=== PATIENT | female | born 1950 | race Caucasian/White ===

== ENCOUNTER 2019-11-01 13:18 | Inpatient (IN) | payer MEDICARE, OTHER ==
[~2019-11-01] VITALS: Ht 154.9 cm; Wt 59.0 kg
[2019-11-01 16:00] VITALS: BP 135/67
[2019-11-01] MEDS ORDERED: PANT20TA2 PO (17:30)
[2019-11-01] MEDS ORDERED: NORT25CA5 PO (17:30)
[2019-11-01] MEDS ORDERED: DOCU-141 PO (17:30)
[2019-11-01] MEDS ORDERED: ALPR0.255 PO (17:30)
[2019-11-01] MEDS ORDERED: ACET-73 PO (17:30)
[2019-11-01] MEDS ORDERED: MIRT15TA PO (17:30)
[2019-11-01] MEDS ORDERED: PITA1TAB PO (17:30)
[2019-11-01] MEDS ORDERED: DIPH25CA83 PO (17:30)
[2019-11-01] MEDS ORDERED: APIX2.5T PO (17:30)
[2019-11-01] MEDS ORDERED: ACET1TAB25 PO (17:30)
[2019-11-01] MEDS ORDERED: MAGN400O6 PO (17:30)
[2019-11-01] MEDS ORDERED: BISA10SU61 RC (17:30)
[2019-11-01] MEDS ORDERED: METH-406 PO (17:30)
[2019-11-01] MEDS ORDERED: GABA100C PO (17:30)
--- NOTE | 2019-11-01 19:40 | NUR ---
Admission: Admitted a 69 year old female patient from [facility] at 1630pm. Pt. is AAO x 4, able to express needs. NO acute distress noted. S/P right knee revision arthroplasty. Right knee with original dressing in place, intact and dry. Pictures taken. Patient noted being very anxious up on admission. Explained all procedures and plan of care to patient. She is calm and resting in bed at this time. Vital signs checked and wnl for patient. NO c/o pain at this time. Also spoke with family (daughter in law) regarding care. Dr. Chen and Dr. Piper made aware of patient admission. Medications to be reconciled by MD. All other needs attended, endorsed to next shift and will continue with care.
[2019-11-01 20:00] VITALS: BP 136/71
[2019-11-01] MEDS ORDERED: BISACODYL 10 MG SUPP.RECT RC PRN (21:15)
[2019-11-01] MEDS ORDERED: Medication Not On Formulary EA (Pitavastatin Calcium (Livalo) 1 MG) PO SCH (21:15)
[2019-11-01] MEDS ORDERED: MAGNESIUM HYDROXIDE 30 ML LIQUID UDC PO PRN (21:15)
--- NOTE | 2019-11-01 21:48 | NUR ---
Received pt resting in bed. AAO x4. No acute distress noted. Denies pain/ discomfort. Pt noted to be anxious. Encouraged pt to verbalize regarding her concerns. Pt anxious about her knee and has history of anxiety. Gustavo ZHOU reconciled meds. Awaiting for pharmacy to verify meds, called and informed pharmacy to verify meds as pt is feeling anxious and wants to take her night meds. Safety measures maintained. Call light and personal items within reach. Will continue to monitor.
[2019-11-01] MEDS ORDERED: Medication Not On Formulary EA (Apixaban (Eliquis) 2.5 MG) PO SCH (22:00)
[2019-11-01] MEDS ORDERED: diphenhydrAMINE 25 MG CAP PO PRN (22:15)
[2019-11-01] MEDS: NORTRIPTYLINE HCL 25 MG CAPSULE PO SCH (22:17)
[2019-11-01] MEDS: MIRTAZAPINE 15 MG TABLET PO SCH (22:17)
[2019-11-01] MEDS: GABAPENTIN 100 MG CAPSULE PO SCH (22:17)
[2019-11-01] MEDS ORDERED: ELIQUIS 2.5 MG PO ONE (23:00)
--- NOTE | 2019-11-01 23:00 | NUR ---
Pt feeling anxious about her meds. She stated she has not taken her meds and eliquis for tonight. Followed up with pharmacy to verify meds. Able to give meds to pt. Continue to monitor.
[2019-11-02] MEDS: ALPRAZOLAM 0.25 MG TABLET PO PRN ×2 (00:17→22:26)
[2019-11-02 04:00] VITALS: BP 125/50
[2019-11-02 07:58] VITALS: BP 111/64
[2019-11-02] MEDS: PANTOPRAZOLE SODIUM 40 MG TABLET.DR PO SCH (08:07)
[2019-11-02] MEDS: DOCUSATE SODIUM 100 MG CAPSULE PO SCH ×2 (08:11→17:16)
[2019-11-02] MEDS: METHOCARBAMOL 500 MG TABLET PO SCH ×3 (08:11→17:20)
[2019-11-02] MEDS: ACETAMINOPHEN ES 500 MG TABLET PO SCH ×3 (08:11→17:20)
[2019-11-02] MEDS: APIXABAN 5 MG TABLET PO SCH ×2 (08:17→17:20)
[2019-11-02] MEDS ORDERED: Medication Not On Formulary EA (Apixaban (Eliquis) 2.5 MG) PO SCH (09:00)
--- NOTE | 2019-11-02 16:00 | NUR ---
INTERDISCIPLINARY TEAM CONFERENCE
[2019-11-02 16:07] VITALS: BP 115/55
--- NOTE | 2019-11-02 16:23 | NUR ---
patient is alert, oriented x4, no sob, resp even nonlabored,skin warm and dry to touch, patient seem very anxious about every thing, demanding and needy, patient complained about her right leg, patient stated it looks more swollen her, assessed the leg with +2 pitting edema, no redness noted, dressing is clean and dry, no drainage noted, patient called herself her surgeon, waiting for call back for further instructions Addendum: 11/02/19 at 1634 by MANUEL DAMON RN, RN capillary refill to right toes below 3 seconds, strong pedal pulses, legs color is pink and warm to touch, however called received from [facility] to do venous duplex, approved with dr rowe Addendum: 11/02/19 at 1636 by MANUEL DAMON RN, RN left lower leg noted with pitting edema +2 as well
[2019-11-02 20:00] VITALS: BP 134/62
[2019-11-02] MEDS: SIMVASTATIN 10 MG TABLET PO SCH (20:57)
[2019-11-02] MEDS: NORTRIPTYLINE HCL 25 MG CAPSULE PO SCH (20:58)
[2019-11-02] MEDS: MIRTAZAPINE 15 MG TABLET PO SCH (20:58)
[2019-11-02] MEDS: GABAPENTIN 100 MG CAPSULE PO SCH (20:58)
[2019-11-02] MEDS ORDERED: NORTRIPTYLINE HCL 25 MG CAPSULE PO SCH (21:00)
[2019-11-02] MEDS ORDERED: GABAPENTIN 100 MG CAPSULE PO SCH (21:00)
[2019-11-02] MEDS ORDERED: MIRTAZAPINE 15 MG TABLET PO SCH (21:00)
--- NOTE | 2019-11-02 21:29 | NUR ---
Received pt resting in bed. Assisted pt in ambulating in the hallway using walker, tolerated well. AAO x4. No acute distress noted. Denies pain/ discomfort. Due meds given as ordered. Safety measures maintained. Call light and personal items within reach. Will continue to monitor.
[2019-11-03 04:00] VITALS: BP 124/68
[2019-11-03] MEDS: PANTOPRAZOLE SODIUM 40 MG TABLET.DR PO SCH (06:08)
[2019-11-03] MEDS: METHOCARBAMOL 500 MG TABLET PO SCH ×3 (08:22→17:03)
[2019-11-03] MEDS: DOCUSATE SODIUM 100 MG CAPSULE PO SCH ×2 (08:22→17:00)
[2019-11-03] MEDS: ACETAMINOPHEN ES 500 MG TABLET PO SCH ×3 (08:22→17:03)
[2019-11-03] MEDS: APIXABAN 5 MG TABLET PO SCH ×2 (08:24→17:08)
--- NOTE | 2019-11-03 10:00 | NUR ---
Patient AAO x 4, able to express need. NO acute distress noted. Vital signs stable. Scheduled pain pill of Tylenol 500 ES administered also on Robaxin 500mg PO 1 tab TID administered as well. Patient on PT/OT therapy. Right knee dressing intact and dry. Patient noted being very anxious while giving care, explained procedures to patient and calmed patient down. NO complains of pain at this time. Patient ambulatory with a walker. All other needs attended, safety measures in place, call light left at bed side and will continue with care.
--- NOTE | 2019-11-03 14:00 | NUR ---
Patient was very anxious, and stated she wanted to go home now. Family daughter in law called and asked if patient can be discharged today at this moment because she wants to go home. Informed .
--- NOTE | 2019-11-03 14:40 | NUR ---
Patient stated she wants to go home on Tuesday and will not leave today.
[2019-11-03 16:29] VITALS: BP 133/58
--- NOTE | 2019-11-03 18:36 | NUR ---
Patient in bed and on the CPM machine, right knee surgical site with original dressing in place and intact and dry. Due medications administered. Patient did PT/OT. Stated everything is ok now and will be thinking about leaving on Tuesday. Needs attended and met. safety measures in place. Call light left within easy reach and will continue with care.
--- NOTE | 2019-11-03 19:10 | NUR ---
Patient in bed awake and on CPM machine. Patient denies any acute distress or pain. Patient's R. knee surgical dressing is intact, dry and no s/s of infection noted. Patient's vitals stable. Safety measures in place. Bed low and locked in position. Will continue with the plan of care.
[2019-11-03] MEDS: GABAPENTIN 100 MG CAPSULE PO SCH (20:38)
[2019-11-03] MEDS: SIMVASTATIN 10 MG TABLET PO SCH (20:38)
[2019-11-03] MEDS: NORTRIPTYLINE HCL 25 MG CAPSULE PO SCH (20:38)
[2019-11-03] MEDS: MIRTAZAPINE 15 MG TABLET PO SCH (20:38)
[2019-11-03 20:43] VITALS: BP 105/60
[2019-11-03] MEDS: ALPRAZOLAM 0.25 MG TABLET PO PRN (21:17)
[2019-11-04] MEDS: ACETAMINOPHEN/CODEINE 300-60 MG TABLET PO PRN ×2 (02:49→20:40)
[2019-11-04 05:48] VITALS: BP 110/68
[2019-11-04] MEDS: PANTOPRAZOLE SODIUM 40 MG TABLET.DR PO SCH (06:07)
[2019-11-04 06:16] LABS: BASOPHILS % (AUTO) 0.4 % (0.0-2.0); EOSINOPHILS # (AUTO) 0.2 K/uL (0.0-0.7); EOSINOPHILS % (AUTO) 2.8 % (0.0-7.0); HEMOGLOBIN 8.6 g/dL (10.9-14.3); LYMPHOCYTES # (AUTO) 1.7 K/uL (20.0-40.0); LYMPHOCYTES % (AUTO) 26.3 % (20.5-51.5); MEAN CORPUSCULAR HEMOGLOBIN 30.5 uug (24.7-32.8); MEAN CORPUSCULAR HGB CONC 35 g/dL (32.3-35.6); MEAN CORPUSCULAR VOLUME 88.1 fL (75.5-95.3); MONOCYTES # (AUTO) 0.6 K/uL (2.0-10.0); MONOCYTES % (AUTO) 8.9 % (0.0-11.0); NEUTROPHILS # (AUTO) 3.9 K/uL (1.8-8.9); NEUTROPHILS % (AUTO) 61.6 % (38.5-71.5); PLATELET COUNT (AUTO) 192 K/uL (179-408); RED BLOOD CELL COUNT(AUTO) 2.83 MIL/uL (3.63-4.92); WHITE BLOOD COUNT (AUTO) 6.3 K/uL (3.8-11.8)
[2019-11-04 06:23] LABS: CREATININE 0.8 mg/dL (0.6-1.3); POTASSIUM 3.9 mmol/L (3.5-5.1)
--- NOTE | 2019-11-04 06:43 | NUR ---
Patient slept throughout the night. Patient is awake and denies any acute distress or pain at this time. Patient was compliant with all prescribed medications. Patients vitals stable. R. leg surgical dressing remained intact, dry and no signs of infection. Comfort care and needs attended. Fall precautions maintained. Safety measures in place. Will endorse to the oncoming nurse accordingly.
--- NOTE | 2019-11-04 07:45 | NUR ---
Pt is A/o x4. Pt is compliant with medications. Surgical dressing on right knee is intact, no signs of infection. VS are stable. Pt denies distress. Pt is willing to participate in physical therapy.
[2019-11-04 08:00] VITALS: BP 109/48
[2019-11-04] MEDS ORDERED: PANTOPRAZOLE SODIUM 40 MG TABLET.DR PO SCH (08:45)
[2019-11-04] MEDS: ACETAMINOPHEN ES 500 MG TABLET PO SCH ×3 (08:57→17:18)
[2019-11-04] MEDS: DOCUSATE SODIUM 100 MG CAPSULE PO SCH ×2 (08:57→17:00)
[2019-11-04] MEDS: METHOCARBAMOL 500 MG TABLET PO SCH ×3 (08:57→17:18)
[2019-11-04] MEDS: APIXABAN 5 MG TABLET PO SCH ×2 (09:00→17:35)
--- NOTE | 2019-11-04 14:49 | NUR ---
INDIVIDUALIZED PLAN OF CARE
[2019-11-04 16:20] VITALS: BP 125/64
[2019-11-04 20:00] VITALS: BP 127/53
[2019-11-04] MEDS: NORTRIPTYLINE HCL 25 MG CAPSULE PO SCH (20:32)
[2019-11-04] MEDS: MIRTAZAPINE 15 MG TABLET PO SCH (20:32)
[2019-11-04] MEDS: GABAPENTIN 100 MG CAPSULE PO SCH (20:32)
[2019-11-04] MEDS: SIMVASTATIN 10 MG TABLET PO SCH (20:32)
[2019-11-04] MEDS: ALPRAZOLAM 0.25 MG TABLET PO PRN (21:35)
--- NOTE | 2019-11-04 21:48 | NUR ---
Received pt resting in bed. AAO x4. No acute distress noted. Expressed pain/discomfort in her right knee. Stated that she had very good PT today but is feeling a lot more pain with all the exercise. Patient is calm and cooperative. Administered all PM due medications. Patient requested pain medication, administered Tylenol, effective but patient states its still aching 3/. Encouraged pt to verbalize her concerns. Safety measures maintained. Call light and personal items within reach. patient is comfortable at the moment. Will continue to monitor through the night.
--- NOTE | 2019-11-04 21:58 | NUR ---
patient requested sleeping medication, administered Xanax as per request. continue to monitor.
[2019-11-05 04:00] VITALS: BP 129/57
--- NOTE | 2019-11-05 05:45 | NUR ---
Patient slept throughout the night. Patient is awake and denies any acute distress or pain at this time. Patient was compliant with all prescribed medications. Patients vitals stable. R. leg surgical dressing remained intact, dry and no signs of infection. SCD pump on throughout the night. Comfort care and needs attended. Fall precautions maintained. Safety measures in place. Will endorse to the oncoming nurse accordingly.
[2019-11-05] MEDS ORDERED: PANTOPRAZOLE SODIUM 40 MG TABLET.DR PO SCH (07:00)
[2019-11-05 08:00] VITALS: BP 130/69
[2019-11-05] MEDS: METHOCARBAMOL 500 MG TABLET PO SCH ×3 (08:11→16:50)
[2019-11-05] MEDS: DOCUSATE SODIUM 100 MG CAPSULE PO SCH ×2 (08:11→16:50)
[2019-11-05] MEDS: ACETAMINOPHEN ES 500 MG TABLET PO SCH ×3 (08:11→16:50)
[2019-11-05] MEDS: APIXABAN 5 MG TABLET PO SCH ×2 (08:12→16:55)
--- NOTE | 2019-11-05 15:39 | NUR ---
Received patient awake in bed in stable condition. Alert and oriented x4. Patient ongoing therapy for increase strenght and increase endurance. Patient continue pain management routinely with good effect. Ongoing CMP while in bed. Standby assist from bed to the bathroom. Walks with walker. tolerated well. will continue monitor
[2019-11-05 16:39] VITALS: BP 118/46
[2019-11-05] MEDS ORDERED: HYDROMORPHONE HCL 2 MG TABLET PO PRN (19:15)
[2019-11-05 20:00] VITALS: BP 100/55
[2019-11-05] MEDS: GABAPENTIN 100 MG CAPSULE PO SCH (21:29)
[2019-11-05] MEDS: NORTRIPTYLINE HCL 25 MG CAPSULE PO SCH (21:29)
[2019-11-05] MEDS: SIMVASTATIN 10 MG TABLET PO SCH (21:30)
[2019-11-05] MEDS: MIRTAZAPINE 15 MG TABLET PO SCH (21:30)
[2019-11-05] MEDS: ALPRAZOLAM 0.25 MG TABLET PO PRN (21:34)
[2019-11-06 04:00] VITALS: BP 106/61
--- NOTE | 2019-11-06 05:01 | NUR ---
Received pt waking in the hallway with her walker. AAO x4. No acute distress noted. Expressed pain/discomfort in her right knee. Stated that she already received pain medication and does not want to take anything at the moment. Patient is calm and cooperative. Administered all PM due medications. patient felt nauseas and dizzy, laying in bed, vitals stable. Gave patient snacks to eat because she did not eat dinner. Encouraged pt to verbalize her concerns., kept comfortable. Patient requested Xanax, administer effective. patient slept through the night. No new changes noted, vitals stable. Safety measures maintained. Call light and personal items within reach.. Will continue plan of care, endorse next shift accordingly.
[2019-11-06 06:22] LABS: BASOPHILS % (AUTO) 0.5 % (0.0-2.0); EOSINOPHILS # (AUTO) 0.2 K/uL (0.0-0.7); EOSINOPHILS % (AUTO) 2.6 % (0.0-7.0); HEMATOCRIT 25.7 % (31.2-41.9); HEMOGLOBIN 8.8 g/dL (10.9-14.3); LYMPHOCYTES # (AUTO) 1.6 K/uL (20.0-40.0); LYMPHOCYTES % (AUTO) 24.2 % (20.5-51.5); MEAN CORPUSCULAR HEMOGLOBIN 30.4 uug (24.7-32.8); MEAN CORPUSCULAR HGB CONC 34 g/dL (32.3-35.6); MEAN CORPUSCULAR VOLUME 88.5 fL (75.5-95.3); MONOCYTES # (AUTO) 0.6 K/uL (2.0-10.0); MONOCYTES % (AUTO) 9.8 % (0.0-11.0); NEUTROPHILS # (AUTO) 4.1 K/uL (1.8-8.9); NEUTROPHILS % (AUTO) 62.9 % (38.5-71.5); PLATELET COUNT (AUTO) 226 K/uL (179-408); RED BLOOD CELL COUNT(AUTO) 2.91 MIL/uL (3.63-4.92); WHITE BLOOD COUNT (AUTO) 6.6 K/uL (3.8-11.8)
[2019-11-06 06:32] LABS: CREATININE 0.9 mg/dL (0.6-1.3); POTASSIUM 3.9 mmol/L (3.5-5.1)
[2019-11-06 07:30] VITALS: BP 140/63
[2019-11-06] MEDS: ACETAMINOPHEN ES 500 MG TABLET PO SCH ×4 (08:48→17:22)
[2019-11-06] MEDS: METHOCARBAMOL 500 MG TABLET PO SCH ×4 (08:48→17:22)
[2019-11-06] MEDS: DOCUSATE SODIUM 100 MG CAPSULE PO SCH ×2 (08:48→17:22)
[2019-11-06] MEDS: APIXABAN 5 MG TABLET PO SCH ×2 (08:53→17:26)
--- NOTE | 2019-11-06 11:38 | NUR ---
Received patient awake in bed in stable condition. Alert and orientedx4. Patient continue pain management routinely for therapy. Patient tolerated well therapy for increase strenght, endurance and S/P surgery. Patient continue CPM machine while in bed. Patient verbalize, its helpful for her and she feels better now. Patient continue ambulating with walker. Patient surgery site intact and patent. no drainage and no foul smell noted. Patient refuse to change original dressing. will continue monitor
[2019-11-06 15:59] VITALS: BP 110/50
[2019-11-06] MEDS ORDERED: MAG HYDROX/AL HYDROX/SIMETH 30 ML LIQUID UDC PO PRN (18:15)
[2019-11-06 20:00] VITALS: BP 119/50
[2019-11-06] MEDS: SIMVASTATIN 10 MG TABLET PO SCH (20:54)
[2019-11-06] MEDS: GABAPENTIN 100 MG CAPSULE PO SCH (20:54)
[2019-11-06] MEDS: NORTRIPTYLINE HCL 25 MG CAPSULE PO SCH (20:54)
[2019-11-06] MEDS: MIRTAZAPINE 15 MG TABLET PO SCH (20:54)
[2019-11-06] MEDS: ALPRAZOLAM 0.25 MG TABLET PO PRN (20:57)
[2019-11-07 04:00] VITALS: BP 126/60
--- NOTE | 2019-11-07 05:31 | NUR ---
Received patient talking on her phone with daughter, delroy padgett, cooperative calm, very nice lady. Patient verbalized how pleased she is with physical therapy and the CMP machine, she is feeling better. No signs of distress noted, complaints of aching in her knee, stated she already took her medication for pain. Administered all due medications, as well as Xanax as per patient request to help her relax and fall asleep. Patient surgery site intact and patent, Picture taken and placed in chart, no new changes. Safety measure in place, call light and all personal items within reach. Patient continue ambulating with walker. All needs attended to promptly. Continue plan of care, endorse next shift accordingly.
[2019-11-07] MEDS: METHOCARBAMOL 500 MG TABLET PO SCH ×3 (08:51→16:33)
[2019-11-07] MEDS: ACETAMINOPHEN ES 500 MG TABLET PO SCH ×3 (08:51→16:33)
[2019-11-07] MEDS: APIXABAN 5 MG TABLET PO SCH ×2 (08:52→16:34)
[2019-11-07] MEDS: DOCUSATE SODIUM 100 MG CAPSULE PO SCH ×2 (08:52→16:33)
[2019-11-07 16:15] VITALS: BP 120/53
[2019-11-07 17:56] VITALS: BP 120/53
--- NOTE | 2019-11-07 19:30 | NUR ---
Received patient awake, alert and oriented x 4, denies any pain/discomforts at this time. No s/s of respiratory distress. Safety measures and fall precaution maintained. Continue care as planned.
[2019-11-07 20:00] VITALS: BP 143/73
[2019-11-07] MEDS: MIRTAZAPINE 15 MG TABLET PO SCH (20:29)
[2019-11-07] MEDS: NORTRIPTYLINE HCL 25 MG CAPSULE PO SCH (20:29)
[2019-11-07] MEDS: SIMVASTATIN 10 MG TABLET PO SCH (20:30)
[2019-11-07] MEDS: GABAPENTIN 100 MG CAPSULE PO SCH (20:31)
[2019-11-07] MEDS: ALPRAZOLAM 0.25 MG TABLET PO PRN (21:20)
[2019-11-08 04:00] VITALS: BP 100/60
--- NOTE | 2019-11-08 05:28 | NUR ---
Shift End Report: VS stable. No complaint of pain presented all night. Xanax given once for anxiety with help. Ambulatory to the bathroom with walker with slow unsteady gait. No fall /injury reported. All needs attended and met. No significant event reported. Continue current rehab plan of care.
[2019-11-08] MEDS: METHOCARBAMOL 500 MG TABLET PO SCH ×3 (08:12→17:06)
[2019-11-08] MEDS: DOCUSATE SODIUM 100 MG CAPSULE PO SCH ×3 (08:12→17:06)
[2019-11-08] MEDS: ACETAMINOPHEN ES 500 MG TABLET PO SCH ×3 (08:12→17:07)
[2019-11-08] MEDS: APIXABAN 5 MG TABLET PO SCH ×2 (08:16→17:09)
[2019-11-08 08:35] VITALS: BP 114/72
--- NOTE | 2019-11-08 09:43 | NUR ---
Patient alert, oriented x 4, not in any form of distress, on room air. Patient compliant with medications. No complain of any pain at this time. With clean and dry surgical dressing on the right knee. Assisted with her needs promptly. Call light and frequently used items placed within patient's reach. Safety measures maintained.
[2019-11-08 15:00] VITALS: BP 109/50
--- NOTE | 2019-11-08 18:58 | NUR ---
Patient participated with therapy and tolerated well. No complain of any pain or discomfort at this time. Due medications administered and tolerated well. CPM used and patient tolerated. Assisted with her needs promptly. Safety measures maintained. Will endorse accordingly to assistant casino shift manager nurse.
--- NOTE | 2019-11-08 19:30 | NUR ---
Awake, in bed, watching TV during initial rounds. Cold compress applied on right knee for complaint of pain. Right knee dressing dry and intact with slight swelling noted. Refused pain meds offered. Safety measures and fall precaution maintained. Continue care as planned.
[2019-11-08 20:07] VITALS: BP 132/80
[2019-11-08 20:11] VITALS: BP 132/80
[2019-11-08] MEDS: SIMVASTATIN 10 MG TABLET PO SCH (21:00)
[2019-11-08] MEDS: HYDROMORPHONE HCL 2 MG TABLET PO PRN (21:00)
[2019-11-08] MEDS: MIRTAZAPINE 15 MG TABLET PO SCH (21:01)
[2019-11-08] MEDS: NORTRIPTYLINE HCL 25 MG CAPSULE PO SCH (21:01)
[2019-11-08] MEDS: GABAPENTIN 100 MG CAPSULE PO SCH (21:01)
[2019-11-09 05:20] VITALS: BP 96/50
--- NOTE | 2019-11-09 06:35 | NUR ---
Shift End Report; Slept well. No further complaint presented. Pain medication effective. No significant event reported all night. Continue current rehab plan of care. VS stable.
[2019-11-09 06:37] LABS: BASOPHILS % (AUTO) 0.3 % (0.0-2.0); EOSINOPHILS # (AUTO) 0.1 K/uL (0.0-0.7); EOSINOPHILS % (AUTO) 1.7 % (0.0-7.0); HEMATOCRIT 26.8 % (31.2-41.9); HEMOGLOBIN 9.2 g/dL (10.9-14.3); LYMPHOCYTES % (AUTO) 22.4 % (20.5-51.5); MEAN CORPUSCULAR HEMOGLOBIN 30.5 uug (24.7-32.8); MEAN CORPUSCULAR HGB CONC 34 g/dL (32.3-35.6); MEAN CORPUSCULAR VOLUME 88.7 fL (75.5-95.3); MONOCYTES # (AUTO) 0.7 K/uL (2.0-10.0); MONOCYTES % (AUTO) 8.4 % (0.0-11.0); NEUTROPHILS # (AUTO) 5.9 K/uL (1.8-8.9); NEUTROPHILS % (AUTO) 67.2 % (38.5-71.5); PLATELET COUNT (AUTO) 283 K/uL (179-408); RED BLOOD CELL COUNT(AUTO) 3.02 MIL/uL (3.63-4.92); WHITE BLOOD COUNT (AUTO) 8.8 K/uL (3.8-11.8)
[2019-11-09 07:02] LABS: BILIRUBIN,TOTAL 0.9 mg/dL (0.2-1.0); CREATININE 0.9 mg/dL (0.6-1.3); MAGNESIUM 2.3 mg/dL (1.8-2.4); PHOSPHOROUS 4.3 mg/dL (2.5-4.9); POTASSIUM 4.1 mmol/L (3.5-5.1); TOTAL PROTEIN, SERUM 6.6 g/dL (6.4-8.2)
[2019-11-09 07:44] VITALS: BP 111/48
[2019-11-09] MEDS: METHOCARBAMOL 500 MG TABLET PO SCH ×3 (08:06→17:28)
[2019-11-09] MEDS: ACETAMINOPHEN ES 500 MG TABLET PO SCH ×3 (08:06→17:00)
[2019-11-09] MEDS: DOCUSATE SODIUM 100 MG CAPSULE PO SCH ×2 (08:09→17:00)
[2019-11-09 08:34] LABS: THYROID STIMULATING HORMONE 1.458 mIU/mL (0.358-3.740)
[2019-11-09] MEDS: APIXABAN 5 MG TABLET PO SCH ×2 (08:40→17:28)
[2019-11-09] MEDS: HYDROMORPHONE HCL 2 MG TABLET PO PRN ×2 (13:22→17:36)
[2019-11-09 15:07] VITALS: BP 107/54
--- NOTE | 2019-11-09 17:54 | NUR ---
Patient remains alert, oriented x 4, ambulatory with walker, not in any form of distress, on room air. She complained of right knee pain, given PRN pain medication as ordered with noted relief. Patient participated with PT and OT. Patient used CPM applied by PT for 2 hours. Due medications administered and tolerated well. Assisted with her needs promptly. Call light and frequently used items placed within patient's reach.
--- NOTE | 2019-11-09 19:20 | NUR ---
Patient received in bed, AAOx4. Patient denies any acute distress or pain. Patient's vitals stable. R Leg dressing is intact, dry and no s/s of infection noted. Safety measures in place. Call light within reach. Will continue with the plan of care.
[2019-11-09] MEDS: MIRTAZAPINE 15 MG TABLET PO SCH (20:24)
[2019-11-09] MEDS: GABAPENTIN 100 MG CAPSULE PO SCH (20:24)
[2019-11-09] MEDS: NORTRIPTYLINE HCL 25 MG CAPSULE PO SCH (20:24)
[2019-11-09] MEDS: SIMVASTATIN 10 MG TABLET PO SCH (20:24)
[2019-11-09] MEDS: ALPRAZOLAM 0.25 MG TABLET PO PRN (20:24)
[2019-11-09 20:26] VITALS: BP 115/68
--- NOTE | 2019-11-09 23:40 | NUR ---
Interdisciplinary Team Conference
[2019-11-10 06:48] VITALS: BP 116/60
--- NOTE | 2019-11-10 06:49 | NUR ---
Patient slept through the night. Patient is awake and denies any acute distress or pain at this time. Vitals stable. Patient's R leg dressing is intact and no s/s of infection. Fall precaution maintained. Pain was managed effectively. Comfort care and needs attended. Safety measures in place. Call light within reach. Will endorse to the oncoming nurse accordingly.
[2019-11-10 08:00] VITALS: BP 116/70
[2019-11-10] MEDS: APIXABAN 5 MG TABLET PO SCH ×2 (08:04→16:30)
[2019-11-10] MEDS: DOCUSATE SODIUM 100 MG CAPSULE PO SCH ×2 (08:05→16:25)
[2019-11-10] MEDS: METHOCARBAMOL 500 MG TABLET PO SCH ×3 (08:05→16:25)
[2019-11-10] MEDS: HYDROMORPHONE HCL 2 MG TABLET PO PRN (08:06)
[2019-11-10] MEDS: ACETAMINOPHEN ES 500 MG TABLET PO SCH ×4 (08:06→17:29)
--- NOTE | 2019-11-10 11:17 | NUR ---
Patient AAO x 4, able to express need. NO acute distress noted. Vital signs stable. Right knee surgical sit with original dressing and intact and dry. Patient compalined of pain 7/10 before PT/OT. patient asked for Dilaudid 2mg pain pill instead of Tylenol 500 before PT/OT. All due morning medications administered and tolerated well. Patient ambulatory with a walker and independent for most care. All other needs attended, safety measures in place and will continue with care.
[2019-11-10 15:57] VITALS: BP 97/44
--- NOTE | 2019-11-10 16:39 | NUR ---
Patient refused [address], stating she is going ok. Pt. also refused Tylenol 500Es instead requested for Dilaudid 2mg 1 tab PO q 4hrs for pain.
--- NOTE | 2019-11-10 17:33 | NUR ---
Patient requested Tylenol 500mg Es instead of Dilaudid as previously asked.
[2019-11-10] MEDS: METFORMIN HCL 500 MG TABLET PO SCH (18:00)
--- NOTE | 2019-11-10 18:40 | NUR ---
Patient refused Metformin at 1800 stating, she does not take Diabetes mediations and would like to talk to MD first. Dr. Hutchinson aware and will f/up with patient. Endorsed to next shift and will continue with care.
[2019-11-10 20:00] VITALS: BP 130/66
[2019-11-10] MEDS: GABAPENTIN 100 MG CAPSULE PO SCH (21:04)
[2019-11-10] MEDS: MIRTAZAPINE 15 MG TABLET PO SCH (21:04)
[2019-11-10] MEDS: NORTRIPTYLINE HCL 25 MG CAPSULE PO SCH (21:04)
[2019-11-10] MEDS: ALPRAZOLAM 0.25 MG TABLET PO PRN (22:01)
--- NOTE | 2019-11-10 23:05 | NUR ---
Received pt resting in bed and watching tv. AAO x4. No acute distress noted. Denies pain/ discomfort. Due meds given as ordered. Safety measures maintained. Call light and personal items within reach. Will continue to monitor.
[2019-11-11 04:00] VITALS: BP 109/51
[2019-11-11 08:00] VITALS: BP 123/68
[2019-11-11] MEDS: METFORMIN HCL 500 MG TABLET PO SCH ×2 (08:00→17:37)
[2019-11-11] MEDS: METHOCARBAMOL 500 MG TABLET PO SCH ×3 (08:32→17:37)
[2019-11-11] MEDS: DOCUSATE SODIUM 100 MG CAPSULE PO SCH ×2 (08:33→16:20)
[2019-11-11] MEDS: APIXABAN 5 MG TABLET PO SCH ×2 (08:34→16:10)
[2019-11-11] MEDS: ACETAMINOPHEN ES 500 MG TABLET PO SCH ×4 (09:12→23:58)
[2019-11-11] MEDS: FERROUS GLUCONATE 324 MG TABLET PO SCH (09:33)
--- NOTE | 2019-11-11 10:05 | NUR ---
Patient AAO x 4, able to express need. NO acute distress noted. Vital signs stable. Patient at rehab at this moment doing PT. Right knee surgical sit intact and dry. P. Due morning medications administered and tolerated well. Patient ambulatory with a walker. All other needs attended, safety measures in place and will continue with care.
[2019-11-11 16:00] VITALS: BP 132/64
[2019-11-11] MEDS: HYDROMORPHONE HCL 2 MG TABLET PO PRN ×2 (16:17→21:16)
--- NOTE | 2019-11-11 16:21 | NUR ---
Patient received Dilaudid 2mg 1 tab for pain level of 8/10 on right knee instead of Tylenol 500mg Es.
--- NOTE | 2019-11-11 18:53 | NUR ---
Needs attended and met. Patient noted ambulating with a walker by self at times during shift. Due meds administered. Patient refused Metformin 500mg PO BID, MD informed and patient also spoke with MD regarding medication therapy. Safety needs in place, call light left at bed side and will continue with care.
--- NOTE | 2019-11-11 19:30 | NUR ---
Awake, in bed, watching TV at this time. Denies any pain/discomforts at this time. Right knee dressing dry and intact. Safety measures and fall precaution maintained. Continue care as planned.
--- NOTE | 2019-11-11 19:41 | NUR ---
End of shift report given to pm nurse.
[2019-11-11 20:00] VITALS: BP 133/67
[2019-11-11] MEDS: GABAPENTIN 100 MG CAPSULE PO SCH (21:14)
[2019-11-11] MEDS: MIRTAZAPINE 15 MG TABLET PO SCH (21:14)
[2019-11-11] MEDS: NORTRIPTYLINE HCL 25 MG CAPSULE PO SCH (21:14)
[2019-11-11] MEDS: ALPRAZOLAM 0.25 MG TABLET PO PRN (22:11)
--- NOTE | 2019-11-11 23:59 | NUR ---
Patient complaining of right knee pain, refused Dilaudid ordered PRN, prefer Tylenol ES mg 1 tab oral given. Will monitor.
[2019-11-12 06:24] VITALS: BP 115/50
--- NOTE | 2019-11-12 06:44 | NUR ---
Shift End Report: Slept well. Medicated once with Tylenol. No further complaint presented.Ice pack on right knee inplaced. No fall/injury reported. All needs attended and met. No significant event reported. Continue current rehab plan of care. Vs stable. No respiratory distress noted.
[2019-11-12 08:00] VITALS: BP 141/72
[2019-11-12] MEDS: METFORMIN HCL 500 MG TABLET PO SCH ×3 (08:00→17:44)
[2019-11-12] MEDS: METHOCARBAMOL 500 MG TABLET PO SCH ×3 (08:35→16:41)
[2019-11-12] MEDS: ACETAMINOPHEN ES 500 MG TABLET PO SCH ×3 (08:39→17:00)
[2019-11-12] MEDS: APIXABAN 5 MG TABLET PO SCH ×2 (08:45→17:43)
[2019-11-12] MEDS: DOCUSATE SODIUM 100 MG CAPSULE PO SCH ×2 (08:47→17:00)
[2019-11-12] MEDS: FERROUS GLUCONATE 324 MG TABLET PO SCH (08:47)
[2019-11-12 16:00] VITALS: BP 137/70
[2019-11-12] MEDS: HYDROMORPHONE HCL 2 MG TABLET PO PRN (17:36)
--- NOTE | 2019-11-12 18:50 | NUR ---
Patient complained of right knee pain, given PRN pain medication as ordered with noted relief. Patient seen by Dr. Naranjo, update given to MD, informed regarding right knee x-ray result with no new order. Assisted with her needs promptly. Call light and frequently used items placed within patient's reach. Safety measures maintained.
--- NOTE | 2019-11-12 19:30 | NUR ---
Awake and alert during initial rounds. Busy talking on her cell phone at this time. No s/s of pain/discomforts. Right knee dressing dry and intact with slight swelling noted, warmth to touch. Cold compress in used at this time. Safety measure and fall precaution maintained. Continue care as planned. .
[2019-11-12 20:20] VITALS: BP 139/74
[2019-11-12] MEDS: MIRTAZAPINE 15 MG TABLET PO SCH (20:53)
[2019-11-12] MEDS: GABAPENTIN 100 MG CAPSULE PO SCH (20:53)
[2019-11-12] MEDS: NORTRIPTYLINE HCL 25 MG CAPSULE PO SCH (20:53)
--- NOTE | 2019-11-12 21:20 | NUR ---
Patient complaining of severe right knee pain in scale of 9/10 after ambulating herself to the bathroom/ Dilaudid 4 mg given as ordered and needed. Assisted back to bed, made comfortable and repositioned for comfort. Will monitor.
[2019-11-12] MEDS: ALPRAZOLAM 0.25 MG TABLET PO PRN (22:06)
[2019-11-13 04:40] VITALS: BP 113/58
--- NOTE | 2019-11-13 05:36 | NUR ---
Shift End Report: Slept good after taking her Xanax. No further complaint presented. Ambulatory to the bathroom with walker.No fall/injury reported. All needs attended and met. Continue current rehab plan of care. VS stable.
[2019-11-13] MEDS: METFORMIN HCL 500 MG TABLET PO SCH (08:00)
[2019-11-13] MEDS: ACETAMINOPHEN ES 500 MG TABLET PO SCH ×2 (08:18→12:12)
[2019-11-13] MEDS: METHOCARBAMOL 500 MG TABLET PO SCH ×2 (08:18→12:13)
[2019-11-13] MEDS: FERROUS GLUCONATE 324 MG TABLET PO SCH (08:18)
[2019-11-13] MEDS: APIXABAN 5 MG TABLET PO SCH (08:20)
[2019-11-13] MEDS: DOCUSATE SODIUM 100 MG CAPSULE PO SCH (08:20)
--- NOTE | 2019-11-13 09:00 | NUR ---
Patient compliant with medications. Dr. Chen saw patient and said OK for discharge and reconciled discharge medications.
--- NOTE | 2019-11-13 10:45 | NUR ---
Discharge order to home with home health received from Dr. Naranjo. Patient made aware and agreeable.
--- NOTE | 2019-11-13 12:45 | NUR ---
Discharge instructions provided to the patient with verbalized understanding. Discharge papers signed by and given to the patient. All belongings well accounted for and brought with the patient. Discharge photos taken. Prescription and TMS faxed to preferred pharmacy. Patient remains alert, oriented x 4, not in any form of distress, on room air, ambulatory with walker. Surgical dressing on the right knee clean and dry. Assisted with her needs. Patient assisted to the lobby safely via wheelchair. Discharged patient to home with home health, picked up by her sister Beena Spence via private car.
== END 2019-11-13 12:25 | disposition home or self-care (01) | DRG 560 ==
PROVIDERS: ADMIT Physical Medicine & Rehabilitation Pain Medicine; ATTEND Family Medicine
DX: Z47.1 Aftercare following joint replacement surgery (principal); D68.59 Other primary thrombophilia; Z96.651 Presence of right artificial knee joint; E78.5 Hyperlipidemia, unspecified; F41.9 Anxiety disorder, unspecified; K21.9 Gastro-esophageal reflux disease without esophagitis; Z87.442 Personal history of urinary calculi; Z90.710 Acquired absence of both cervix and uterus; T84.84XD Pain due to internal orthopedic prosthetic devices, implants and grafts, subsequent encounter; D64.9 Anemia, unspecified; E11.9 Type 2 diabetes mellitus without complications; G89.29 Other chronic pain; M19.90 Unspecified osteoarthritis, unspecified site; Z85.3 Personal history of malignant neoplasm of breast; Z88.1 Allergy status to other antibiotic agents; Z88.5 Allergy status to narcotic agent; Z88.8 Allergy status to other drugs, medicaments and biological substances
CPT/HCPCS: 36415; 82652; 83735; 84100; 84443; 85025; A9150